=== PATIENT | male | born 1965 | race Caucasian/White ===

== ENCOUNTER 2018-09-19 04:57 | Emergency (ER) | payer OTHER ==
[~2018-09-19] VITALS: Ht 180.3 cm; Wt 90.2 kg
[2018-09-19 05:04] VITALS: BP 121/74
== END 2018-09-19 05:42 | disposition home or self-care (01) ==
LOC: ER 04:58
DX: M79.641 Pain in right hand (principal)
CPT/HCPCS: 73130; 99284